=== PATIENT | female | born 1950 | race Hispanic/Latino ===

== ENCOUNTER → 2017-11-27 | Outpatient (CLI) | payer BC, MEDICARE ==
[~2017-11-27] MED LIST: ATENOLOL50 MG PO; CITRACAL + BON1 EACH PO; HYDROCHLOROTHIA25 MG PO; HYDROXYCHLOROQ200 MG PO; KEFLEX500 MG PO; METOPROLOL TART50 MG PO; NORCO 10-325 T1 EACH PO; PRINIVIL20 MG PO; PRISTIQ ER50 MG PO
--- NOTE | 2017-11-27 15:21 | Diagnostic Imaging Report ---
PROCEDURE:THORACIC SPINE 2VW COMPARISON:None. INDICATIONS:CHEST, RIB PAIN FINDINGS: See conclusion. CONCLUSION: No evidence of acute fracture or dislocation of the thoracic spine. Multilevel degenerative changes, marked by disc space narrowing and osteophytosis. Dictated by: Yann Sutherland M.D. on 11/27/2017 at 15:25 Electronically approved by: Yann Sutherland M.D. on 11/27/2017 at 15:25
--- NOTE | 2017-11-27 15:27 | Diagnostic Imaging Report ---
PROCEDURE:X-RAY UNILATERAL RIBS WITH CHEST X-RAY COMPARISON:Chest CT dated 11/03/2009 INDICATIONS:FALL FINDINGS: No evidence of acute displaced fracture of the ribs. Age indeterminate nondisplaced fracture deformity of the posterior right 11th rib. Left upper lobe calcified granuloma is again seen. No lung consolidation. CONCLUSION: Age indeterminate nondisplaced fracture deformity of the posterior right 11th rib. Otherwise, unremarkable. Dictated by: Yann Sutherland M.D. on 11/27/2017 at 15:30 Electronically approved by: Yann Sutherland M.D. on 11/27/2017 at 15:30
== END ==
LOC: RAD 14:20
DX: M54.6 Pain in thoracic spine (principal); R07.81 Pleurodynia
CPT/HCPCS: 71101; 72070

== ENCOUNTER 2020-07-27 09:59 | Observation (INO) | payer OTHER, MEDICARE ==
[~2020-07-27] VITALS: Ht 152.4 cm; Wt 100.2 kg
[2020-07-27 10:29] LABS: BASOPHILS # (AUTO) 0.1 (0.0-0.1); BASOPHILS % 0.7 % (0.0-1.0); EOSINOPHILS # (AUTO) 0.4 (0.0-0.4); EOSINOPHILS % 3.1 % (0.0-6.0); HEMATOCRIT 38.6 % (34.2-44.1); HEMOGLOBIN 12.4 g/dL (12.0-16.0); LYMPHOCYTES # (AUTO) 2.4 (1.0-3.2); MEAN CORPUSCULAR HEMOGLOBIN 29.1 pg (28-32); MEAN CORPUSCULAR HGB CONC 32.1 g/dL (31-35); MEAN CORPUSCULAR VOLUME 90.6 fL (81-99); MONOCYTES # (AUTO) 0.9 (0.2-0.8); MONOCYTES % 7.7 % (4.4-11.3); NEUTROPHILS # (AUTO) 7.8 (2.1-6.9); NEUTROPHILS % 67.2 % (38.7-80.0); PLATELET COUNT 299 x10e3/uL (140-360); RED BLOOD COUNT 4.26 x10e6/uL (3.6-5.1); RED CELL DISTRIBUTION WIDTH 13.2 % (11.7-14.4)
[2020-07-27 10:42] LABS: ALANINE AMINOTRANSFERASE 22 IU/L (0-55); ALBUMIN 3.9 g/dL (3.5-5.0); ALKALINE PHOSPHATASE 86 IU/L (40-150); ANION GAP 15.5 mmol/L (8-16); BLOOD UREA NITROGEN 20 mg/dL (7-26); BUN/CREATININE RATIO 30 (6-25); CALCIUM 9.8 mg/dL (8.4-10.2); CARBON DIOXIDE 27 mmol/L (22-29); CHLORIDE 104 mmol/L (98-107); CREATINE KINASE 39 IU/L (29-168); CREATININE, SERUM 0.67 mg/dL (0.57-1.11); EST GLOMERULAR FILTRATION RATE > 60 ML/MIN (60-); GLUCOSE 96 mg/dL (74-118); POTASSIUM 3.5 mmol/L (3.5-5.1); SODIUM 143 mmol/L (136-145)
[2020-07-27] MEDS ORDERED: ASPIRIN 81 MG CHEW TAB PO ONE (11:00)
[2020-07-27 11:46] LABS: CLARITY,URINE CLEAR (CLEAR); COLOR,URINE YELLOW (YELLOW); LEUKOCYTE ESTERASE ,URINE LARGE (NEGATIVE); NITRITE,URINE NEGATIVE (NEGATIVE)
[2020-07-27 11:47] LABS: KETONES,URINE NEGATIVE (NEGATIVE); PROTEIN,URINE DIPSTICK NEGATIVE (NEGATIVE); URINE UROBILINOGEN 0.2 mg/dL (0.2 - 1)
[2020-07-27 11:59] LABS: BACTERIA,URINE MANY /HPF; EPITHELIAL CELLS,URINE FEW /LPF; RBC,URINE 0-5 /HPF (0-5); WBC,URINE (MAN) 21-50 /HPF (0-5)
[2020-07-27 12:05] VITALS: BP 108/71
[2020-07-27] MEDS ORDERED: ATORVASTATIN CA10 MG PO (12:35)
[2020-07-27] MEDS ORDERED: METOPROLOL SUCC50 MG PO (12:35)
[2020-07-27] MEDS ORDERED: HYDROCHLOROTH12.5 MG PO (12:35)
[2020-07-27] MEDS ORDERED: PREDNISONE5 MG PO (12:35)
[2020-07-27] MEDS ORDERED: PLAQUENIL200 MG PO (12:35)
[2020-07-27] MEDS ORDERED: LISINOPRIL10 MG PO (12:35)
[2020-07-27 12:37] VITALS: BP 108/71
[2020-07-27] MEDS ORDERED: SODIUM CHLORIDE 0.9% 100 ML ONE (13:20)
[2020-07-27] MEDS ORDERED: IOPAMIDOL 370 MG/ML 200 ML INFUS..BTL INJ ONE (13:20)
[2020-07-27 15:28] VITALS: BP 95/50
[2020-07-27] MEDS ORDERED: LISINOPRIL 20 MG TAB PO SCH (17:00)
[2020-07-27] MEDS ORDERED: METOPROLOL TARTRATE 50 MG TAB PO SCH (17:00)
[2020-07-27] MEDS: METOPROLOL SUCCINATE 50 MG TAB XL PO SCH (17:00)
[2020-07-27] MEDS: HYDROXYCHLOROQUINE SULFATE 200 MG TAB PO SCH (17:58)
[2020-07-27 20:00] VITALS: BP 109/40
[2020-07-27 20:24] LABS: CREATINE KINASE MB 0.7 ng/mL (0-5.0)
[2020-07-27] MEDS ORDERED: HYDROCODONE/APAP 10MG-325MG TAB PO PRN (21:00)
[2020-07-27 21:06] VITALS: BP 109/40
[2020-07-28] VITALS: BP 92/46
[2020-07-28 04:00] VITALS: BP 96/39
[2020-07-28 06:04] LABS: BASOPHILS # (AUTO) 0.1 (0.0-0.1); BASOPHILS % 0.7 % (0.0-1.0); EOSINOPHILS # (AUTO) 0.3 (0.0-0.4); EOSINOPHILS % 3.1 % (0.0-6.0); HEMOGLOBIN 11.8 g/dL (12.0-16.0); LYMPHOCYTES # (AUTO) 2.9 (1.0-3.2); LYMPHOCYTES % 28.8 % (18.0-39.1); MEAN CORPUSCULAR HEMOGLOBIN 29.1 pg (28-32); MEAN CORPUSCULAR HGB CONC 32.8 g/dL (31-35); MEAN CORPUSCULAR VOLUME 88.9 fL (81-99); MONOCYTES # (AUTO) 0.8 (0.2-0.8); MONOCYTES % 7.8 % (4.4-11.3); NEUTROPHILS % 59.3 % (38.7-80.0); PLATELET COUNT 260 x10e3/uL (140-360); RED BLOOD COUNT 4.05 x10e6/uL (3.6-5.1); RED CELL DISTRIBUTION WIDTH 13.2 % (11.7-14.4)
[2020-07-28 06:33] LABS: ALANINE AMINOTRANSFERASE 19 IU/L (0-55); ALBUMIN 3.6 g/dL (3.5-5.0); ALKALINE PHOSPHATASE 81 IU/L (40-150); ANION GAP 14.4 mmol/L (8-16); BLOOD UREA NITROGEN 23 mg/dL (7-26); BUN/CREATININE RATIO 39 (6-25); CALCIUM 9.5 mg/dL (8.4-10.2); CARBON DIOXIDE 25 mmol/L (22-29); CHLORIDE 104 mmol/L (98-107); CREATININE, SERUM 0.59 mg/dL (0.57-1.11); EST GLOMERULAR FILTRATION RATE > 60 ML/MIN (60-); GLUCOSE 92 mg/dL (74-118); POTASSIUM 3.4 mmol/L (3.5-5.1); SODIUM 140 mmol/L (136-145)
[2020-07-28 06:39] LABS: CREATINE KINASE MB 0.7 ng/mL (0-5.0)
[2020-07-28 08:38] VITALS: BP 100/53
[2020-07-28] MEDS: HYDROXYCHLOROQUINE SULFATE 200 MG TAB PO SCH (08:40)
[2020-07-28] MEDS: METOPROLOL SUCCINATE 50 MG TAB XL PO SCH (08:41)
[2020-07-28 09:00] VITALS: BP 100/53
[2020-07-28] MEDS ORDERED: ATORVASTATIN 10 MG TAB PO SCH (09:00)
[2020-07-28] MEDS ORDERED: HYDROCHLOROTHIAZIDE 25 MG TAB PO SCH (09:00)
[2020-07-28] MEDS ORDERED: PREDNISONE 5 MG TAB PO SCH (09:00)
[2020-07-28] MEDS ORDERED: NON-FORMULARY MEDICATION (Hydrochlorothiazide 25 MG) PO SCH (09:00)
[2020-07-28] MEDS ORDERED: LISINOPRIL 20 MG TAB PO SCH (09:00)
[2020-07-28] MEDS ORDERED: POTASSIUM CHLORIDE 10MEQ EA PO ONE (10:30)
[2020-07-28 12:06] VITALS: BP 103/72
== END 2020-07-28 13:50 | disposition home or self-care (01) ==
LOC: ER 10:11 → ERHOLD 10:56 → MED/SURG3 12:12
DX: G43.809 Other migraine, not intractable, without status migrainosus (principal); I10 Essential (primary) hypertension; E78.5 Hyperlipidemia, unspecified; Z20.822 Contact with and (suspected) exposure to COVID-19
CPT/HCPCS: 36415; 70450; 70496; 70551; 71045; 80053; 81001; 82550; 82553; 84484; 85025; 87086; 87186; 93005; 99284; G0378; J7050; J7512; Q9967; U0002